=== PATIENT | female | born 2000 | race Caucasian/White ===

== ENCOUNTER 2022-03-08 11:15 | Emergency (ER) | payer OTHER, SELFPAY ==
[2022-03-08 11:42] VITALS: BP 120/81; PULSE 100; RESP 16; TEMP 36.9; O2SAT 99; BMI 34.3
[2022-03-08 12:33] LABS: Add Manual Diff / Slide Review NO; Basophils Absolute Auto 0 /uL (0-100); Basophils Percent Auto 0.3 % (0-2); Eosinophils Absolute Auto 100 /uL (0-450); Eosinophils Percent Auto 0.8 % (2-4); Hematocrit 38.5 % (36-46); Hemoglobin 12.6 g/dL (12.0-16.0); Lymphocytes Absolute Auto 1400 /uL (1100-4500); Lymphocytes Percent Auto 16.6 % (25-40); Mean Corpuscular HGB Conc 32.9 % (30-36); Mean Corpuscular Hemoglobin 26.3 PG (26-34); Mean Corpuscular Volume 80.1 fL (80-100); Monocytes Absolute Auto 500 /uL (0-900); Monocytes Percent Auto 5.4 % (3-14); Neutrophils Absolute Auto 6600 /uL (1500-7000); Neutrophils Percent Auto 76.9 % (50-75); Platelet Count 313 X10^3/uL (150-400); Red Cell Distribution Width 15.2 % (11.6-14.8); White Blood Cell Count 8.5 X10^3/uL (4.5-11.0)
[2022-03-08 12:39] LABS: Acetaminophen < 10 ug/mL (10-30); Alanine Aminotransferase 25 IU/L (<35); Albumin 4.3 g/dL (3.5-5.0); Albumin Globulin Ratio 1.1 (1.0-2.8); Alkaline Phosphatase 86 U/L (38-126); Aspartate Aminotransferase 23 IU/L (14-36); BUN Creatinine Ratio 10.5 (6-22); Bilirubin Total 0.5 mg/dL (0.2-1.3); Blood Urea Nitrogen 6 mg/dL (7-17); Calcium 8.7 mg/dL (8.4-10.2); Carbon Dioxide 23 mmol/L (22-32); Chloride 101 mmol/L (98-107); Estimated Glomerular Filt Rate > 60 mL/min (>60); Ethanol (ETOH) < 10 mg/dL; Globulin 3.8 g/dL (1.7-4.1); Glucose 80 mg/dL (70-100); HEMOLYSIS < 15 (0-50); Potassium 3.4 mmol/L (3.4-5.1); Salicylate < 1.0 mg/dL (<20); Sodium 138 mmol/L (137-145); Total Protein 8.1 g/dL (6.3-8.2)
[2022-03-08 12:45] LABS: Bacteria Urine Moderate (10-30); Culture Indicated Urine Cult Not Indicated; Mucus Urine 2+ (Negative); RBC Urine 0-1/HPF (0-5/HPF); Squamous Epithelial Cell Urine 1-5 /HPF (0-5/HPF); WBC Urine 1-5/HPF (0-5/HPF)
[2022-03-08 12:55] LABS: Free T4, Direct Thyroxine 1.02 ng/dL (0.78-2.19)
--- NOTE | 2022-03-08 13:04 | ED.PSYCH ---
HPI - Psych General Chief Complaint: Psychiatric Symptoms Stated Complaint: depression/SI Time Seen by Provider: 03/08/22 12:58 History of Present Illness HPI Narrative: Patient is a 21-year-old female history of depression is now suffering from depression. She states that her baby is now 9 months since she just found out she was 5 weeks . She had a big fight last night was having suicidal thoughts last night no longer having suicidal thoughts. She is no plan today of harming herself or harming anyone else. She has ongoing depression looking for residential placement. She lives with her mom. She has no thoughts of harming her child. She has a scheduled planned in a couple of weeks. She denies any abdominal cramping vaginal bleeding painful frequent urination or flank pain. She did have some right upper quadrant pain that lasted for about 6 hours yesterday but now is resolved. Review of Systems Review of Systems ROS Unobtainable: All systems reviewed & are unremarkable except as noted in HPI and below Exam Initial Vital Signs Initial Vital Signs: Vital Signs Temperature 98.4 F 03/08/22 11:42 Pulse Rate 100 H 03/08/22 11:42 Respiratory Rate 16 03/08/22 11:42 Blood Pressure 120/81 03/08/22 11:42 Pulse Oximetry 99 03/08/22 11:42 Oxygen Delivery Method 03/08/22 11:42 GENERAL: Alert pleasant 21-year-old female and in no acute distress. HEENT: Head atraumatic,EOMI, pupils reactive, face symmetric, moist mucous membranes CARDIOVASCULAR: Regular rate and rhythm without murmurs, rubs or gallops. RESPIRATORY: Breath sounds equal bilaterally, no wheezes rales or rhonchi. ABDOMEN: Soft, nontender. Normoactive bowel sounds all 4 quadrants. Negative Allen sign : No CVA tenderness EXTREMITIES: Normal range of motion, no clubbing or edema. Neurovascularly intact NEUROLOGICAL: Alert and oriented x4. SKIN: Warm, dry, no laceration, no petechiae, no rashes or lesions. Course Orders Ordered: ED Orders 03/08/22 11:51 Consult to SAFETY RISK LEAD - Library Technician Stat 03/08/22 11:53 Urine Drug Screen, Rapid Stat Urine Microscopic Stat 03/08/22 12:00 Acetaminophen Stat Complete Blood Count AUTO DIFF Stat Comprehensive Metabolic Panel Stat Ethanol (ETOH) Stat Free T4, Direct Thyroxine Stat Salicylate Stat Thyroid Stimulating Hormone Stat 03/08/22 12:41 COVID19 -Nasal RAPID/Pre-Proc Stat Vital Signs Vital signs: Vital Signs - 8 hr 03/08/22 11:42 Temperature 98.4 F Pulse Rate 100 H Respiratory Rate 16 Blood Pressure 120/81 Pulse Oximetry 99 Oxygen Delivery Method Room Air MDM - Psych Lab Data Result diagrams: 03/08/22 12:00 03/08/22 12:00 Labs: Lab Results 03/08/22 03/08/22 03/08/22 Range/Units 11:53 11:53 12:00 WBC 8.5 (4.5-11.0) X10^3/uL RBC 4.80 (4.0-5.2) X10^6/uL Hgb 12.6 (12.0-16.0) g/dL Hct 38.5 (36-46) % MCV 80.1 (80-100) fL MCH 26.3 (26-34) PG MCHC 32.9 (30-36) % RDW 15.2 H (11.6-14.8) % Plt Count 313 (150-400) X10^3/uL Neut % (Auto) 76.9 H (50-75) % Lymph % (Auto) 16.6 L (25-40) % [place] % (Auto) 5.4 (3-14) % Eos % (Auto) 0.8 L (2-4) % Baso % (Auto) 0.3 (0-2) % Neut # (Auto) 6600 (9058-2574) /uL Lymph # (Auto) 1400 (7268-2081) /uL [place] # (Auto) 500 (0-900) /uL Eos # (Auto) 100 (0-450) /uL Baso # (Auto) 0 (0-100) /uL Sodium (137-145) mmol/L Potassium (3.4-5.1) mmol/L Chloride (98-107) mmol/L Carbon Dioxide (22-32) mmol/L BUN (7-17) mg/dL Creatinine (0.52-1.04) mg/dL Estimated GFR (>60) mL/min BUN/Creatinine Ratio (6-22) Glucose (70-100) mg/dL Calcium (8.4-10.2) mg/dL Total Bilirubin (0.2-1.3) mg/dL AST (14-36) IU/L ALT (<35) IU/L Alkaline Phosphatase (38-126) U/L Total Protein (6.3-8.2) g/dL Albumin (3.5-5.0) g/dL Globulin (1.7-4.1) g/dL Albumin/Globulin Ratio (1.0-2.8) TSH (0.47-4.68) uIU/mL Free T4 (0.78-2.19) ng/dL Urine RBC 0-1/hpf (0-5/HPF) Urine WBC 1-5/hpf (0-5/HPF) Ur Squamous Epith Cells 1-5 /hpf (0-5/HPF) Urine Bacteria Moderate (10-30) H (None) Urine Mucus 2+ H (Negative) Ur Culture Indicated? Cult not indicated Salicylates (<20) mg/dL U Opiates 300ng/mL cut Negative (Negative) Ur Oxycodone Screen Negative (Negative) Urine Methadone Screen Negative (Negative) Acetaminophen (10-30) ug/mL Ur Barbiturates Screen Negative (Negative) U Tricyclic Antidepress Negative (Negative) Ur Phencyclidine Scrn Negative (Negative) Ur Amphetamines Screen Negative (Negative) U Methamphetamines Scrn Negative (Negative) Ur MDMA Scrn (Ecstasy) Negative (Negative) U Benzodiazepines Scrn Negative (Negative) Urine Cocaine Screen Negative (Negative) U Marijuana (THC) Screen Positive H (Negative) Ethyl Alcohol ( - 10) mg/dL SARS-CoV-2 (PCR) (Negative) 03/08/22 03/08/22 03/08/22 Range/Units 12:00 12:00 12:41 WBC (4.5-11.0) X10^3/uL RBC (4.0-5.2) X10^6/uL Hgb (12.0-16.0) g/dL Hct (36-46) % MCV (80-100) fL MCH (26-34) PG MCHC (30-36) % RDW (11.6-14.8) % Plt Count (150-400) X10^3/uL Neut % (Auto) (50-75) % Lymph % (Auto) (25-40) % [place] % (Auto) (3-14) % Eos % (Auto) (2-4) % Baso % (Auto) (0-2) % Neut # (Auto) (0037-4309) /uL Lymph # (Auto) (2842-3785) /uL [place] # (Auto) (0-900) /uL Eos # (Auto) (0-450) /uL Baso # (Auto) (0-100) /uL Sodium 138 (137-145) mmol/L Potassium 3.4 (3.4-5.1) mmol/L Chloride 101 (98-107) mmol/L Carbon Dioxide 23 (22-32) mmol/L BUN 6 L (7-17) mg/dL Creatinine 0.57 (0.52-1.04) mg/dL Estimated GFR > 60 (>60) mL/min BUN/Creatinine Ratio 10.5 (6-22) Glucose 80 (70-100) mg/dL Calcium 8.7 (8.4-10.2) mg/dL Total Bilirubin 0.5 (0.2-1.3) mg/dL AST 23 (14-36) IU/L ALT 25 (<35) IU/L Alkaline Phosphatase 86 (38-126) U/L Total Protein 8.1 (6.3-8.2) g/dL Albumin 4.3 (3.5-5.0) g/dL Globulin 3.8 (1.7-4.1) g/dL Albumin/Globulin Ratio 1.1 (1.0-2.8) TSH 0.756 (0.47-4.68) uIU/mL Free T4 1.02 (0.78-2.19) ng/dL Urine RBC (0-5/HPF) Urine WBC (0-5/HPF) Ur Squamous Epith Cells (0-5/HPF) Urine Bacteria (None) Urine Mucus (Negative) Ur Culture Indicated? Salicylates < 1.0 (<20) mg/dL U Opiates 300ng/mL cut (Negative) Ur Oxycodone Screen (Negative) Urine Methadone Screen (Negative) Acetaminophen < 10 (10-30) ug/mL Ur Barbiturates Screen (Negative) U Tricyclic Antidepress (Negative) Ur Phencyclidine Scrn (Negative) Ur Amphetamines Screen (Negative) U Methamphetamines Scrn (Negative) Ur MDMA Scrn (Ecstasy) (Negative) U Benzodiazepines Scrn (Negative) Urine Cocaine Screen (Negative) U Marijuana (THC) Screen (Negative) Ethyl Alcohol < 10 ( - 10) mg/dL SARS-CoV-2 (PCR) Negative (Negative) Point of Care Testing Test Results Positive Urine Dip Bedside Urine Glucose Negative Bedside Urine Bilirubin - Negative Bedside Urine Ketone +/- 5 Urine Specific [place] 1.030 Bedside Urine Occult Blood - Negative Bedside Urine pH 6.0 Bedside Urine Protein +/- 15 Bedside Urine Urobilinogen - Negative Bedside Urine Nitrite - Negative Bedside Urine Leukocytes - Negative Esterase MDM Narrative Medical decision making narrative: Patient has underlying depression now depression suicidal thoughts but no longer suicidal. Evaluated by social work. Patient contracts for safety. Has a safe place to go. He is given resources for residential treatment. At this time does not involuntary criteria. Long discussion with patient and mother that if things should change at home and suicidal thoughts intensify that she should return to the emergency department. At this time both mother and patient agree. There are no guns at home. Discharge Plan Departure Patient Disposition: Home Clinical Impression: Depression, Depression with suicidal ideation Instructions: DI for Depression, DI for Suicidal Ideation-Adult Activity Restrictions/Additional Instructions: *You have been diagnosed with depression with suicidal ideation *What to do: At this time he may return to the emergency department any time if you should have increased thoughts of suicide or thoughts or worsening depression If you are feeling suicidal or having suicidal thoughts: Call: Suicide Hotline: 284 Visit: www.[facility].org Text: 632282 *Continue to take medications as directed *Follow up with your primary care provider in 2-3 days or call [phone] *Return to ER if you should have intense abdominal pain vaginal bleeding worsening suicidal thoughts or any new, worsening or concerning symptoms
[2022-03-08 13:09] LABS: Thyroid Stimulating Hormone 0.756 uIU/mL (0.47-4.68)
--- NOTE | 2022-03-08 13:23 | CM.SWNOTE ---
[facility] [place] [facility] [place] Start: 03/08/22 13:02 Freq: Status: Active Protocol: Document 03/08/22 13:02 TM (Rec: 03/08/22 13:23 TM [id number]) BUSINESS ASSOCIATE/Continuity Manager Assessment Time Spent with Patient Start date 03/08/22 Visit Start Time 12:20 End date 03/08/22 Visit End Time 12:45 Mental Health Screening Include Onset, Duration, Intensity Presenting Problem Pt presents to the ED with post depression and suicidal ideation. Precipitating Event(s) Pt reports that she feels overwhelmed and sleep deprived due to her 9 month old son. Pt reports post depression and generalized anxiety disorder. Patient Strengths Pt has supportive family and good insight. Current Behavioral Health Provider(s) Pt sees a therapist on [facility], Provider, Ph. # Space. Pt's PCP and OB have prescribed medications in the past for generalized anxiety disorder. Psych. Hx Mental Health and Chemical Generalized anxiety disorder. Dependency Denies substance use. Family Hx of Behavioral Abuse pt reports excessive emotional trauma but did not go into detail. Pt denies sexual or physical trauma. Pt reports that paternal side of family may suffer from bipolar disorder and maternal side suffers from anxiety and depression. Psychiatric Hospitalizations (date(s)/ Pt denies. location) School/Work Pt is not currently working. Legal Concerns Legal Matters - Outstanding Issues Denies Mental Status Orientation (Person/Place/Time) Pt is alert and oriented x4. Stated Mood Life is too hard. I want to fall asleep and not wake up. Pt reports that these feels are off and on. Affect (Congruent with Mood?) Broad. Thought Content - Specify/Describe Denies AH and VH. Obsessions, Delusions, Hallucinations Thought Processes (Bftuxul-Iiyevdzu-Nvtb Logical, goal directed. Ttogqaom-Qzxokgag-Bgrkgodsgd- Hamdejgrkbslgx-Ieejkhc-Dnabsdelrmri- Thought Blocking) Speech (Tmgkei-Egkd-Mscdpnw-Rapid-Soft- Normal. Loud-Pressured) Motor (Eeueqc-Jepyhlzaw-Fsix-Other) Normal. Insight (Wyca-Kymr-Wlnz/Limited) Good. Judgement (Jfdj-Ssyb-Ycqc/Limited) Good. Impulse Control (Adequate-Impaired) Adequate. Memory (Uwvsxlsob-Hzpgnp-Ruyuzb, immediate. Impaired-Intact) Concentration (Intact-Impaired) Intact. Attention (Intact-Impaired) Intact. Behavior (Appropriate-Inappropriate) Appropriate. Risk Assessment Suicidal Ideation (Plan) No Homicidal Ideation (Plan) No Intervention Intervention SW met with pt and her mother at bedside to complete MH Assessment. Pt reports feeling suicidal ideation off and on. Pt reports that she has never had a plan and is too afraid to come up with one. Pt reports that she thinks that outpatient treatment is uneffective and she is too distracted by things going on at home to focus on herself. Pt has looked into [facility] [place]. SW researches and finds that it is a [facility] that offers housing. SW attempts to call but they are closed for admissions today. SW meets pt and her mother back in room and describes difference between crisis stabilization and termite inspector PHP or residential mental health. SW explains that she can refer pt to short term crisis stabilization from the ED, which generally lasts 3-7 days . Pt reports that she feels like she can contract for safety at this time and return home with the plan to pursue residential treatment on her own. [facility] discusses with ED Provider and agrees that pt is safe to discharge home with resources. [facility] provides pt with resources on additional PHP and residential programs. Plan RA Plan Pt will discharge home with resources. NEEMA Candelario
[2022-03-08 13:30] LABS: UR Morphine/Opiate cutoff 300 Negative (Negative); Ur Creatinine Normal (Normal); Ur Specific Gravity Normal (Normal); Urine Amphetamines Negative (Negative); Urine Barbiturates Negative (Negative); Urine Benzodiazepines Negative (Negative); Urine Cocaine Negative (Negative); Urine MDMA Negative (Negative); Urine Methadone Negative (Negative); Urine Methamphetamines Negative (Negative); Urine Oxycodone Negative (Negative); Urine Phencyclidine Negative (Negative); Urine Tetrahydrocannabinol Positive (Negative); Urine Tricyclic Antidepressant Negative (Negative); Urine pH Normal (Normal)
[2022-03-08 13:43] LABS: COVID19 -Nasal RAPID Negative (Negative)
== END 2022-03-08 13:50 | disposition home or self-care (01) ==
PROVIDERS: Emergency Provider Emergency Medicine
DX: O99.345 Other mental disorders complicating the puerperium (principal); R45.851 Suicidal ideations; Z20.822 Contact with and (suspected) exposure to COVID-19
CPT/HCPCS: 80053; 80305; 80320; 80329; 81003; 81015; 81025; 84439; 84443; 85025; 87635; 99283; C9803; G0480

== ENCOUNTER 2022-07-17 06:40 | Emergency (ER) | payer OTHER, SELFPAY ==
[2022-07-17] VITALS (10 sets, daily range): BP systolic 107–140; BP diastolic 64–76; PULSE 77–110; RESP 12–21; TEMP 36.3; O2SAT 96–100; BMI 34.9
--- NOTE | 2022-07-17 07:27 | PC.NURSE ---
Pt appears well, states she is slightly anxious. Reports a sharp chest pain that is worse with movement. She states that she has had a dull chest pain for the past week and has had a medical w/u with an o/p EKG and ECHO scheduled. Pt is a&ox4 at this time. Speaking in full clear sentences
[2022-07-17 07:38] LABS: Add Manual Diff / Slide Review NO; Alanine Aminotransferase 21 IU/L (<35); Albumin 4.4 g/dL (3.5-5.0); Albumin Globulin Ratio 1.3 (1.0-2.8); Alkaline Phosphatase 89 U/L (38-126); Aspartate Aminotransferase 25 IU/L (14-36); BUN Creatinine Ratio 12.9 (6-22); Basophils Absolute Auto 0 /uL (0-100); Basophils Percent Auto 0.9 % (0-2); Bilirubin Total 0.4 mg/dL (0.2-1.3); Blood Urea Nitrogen 8 mg/dL (7-17); Calcium 8.3 mg/dL (8.4-10.2); Carbon Dioxide 24 mmol/L (22-32); Chloride 105 mmol/L (98-107); Creatine Kinase 114 U/L (30-135); Eosinophils Absolute Auto 200 /uL (0-450); Eosinophils Percent Auto 4.1 % (2-4); Estimated Glomerular Filt Rate > 60 mL/min (>60); Globulin 3.4 g/dL (1.7-4.1); Glucose 112 mg/dL (70-100); HEMOLYSIS < 15 (0-50); Hematocrit 39.2 % (36-46); Hemoglobin 13.2 g/dL (12.0-16.0); Lipase 196 U/L (23-300); Lymphocytes Absolute Auto 1300 /uL (1100-4500); Lymphocytes Percent Auto 25.8 % (25-40); Magnesium 1.9 mg/dL (1.6-2.3); Mean Corpuscular HGB Conc 33.6 % (30-36); Mean Corpuscular Hemoglobin 26.5 PG (26-34); Mean Corpuscular Volume 78.8 fL (80-100); Monocytes Absolute Auto 400 /uL (0-900); Monocytes Percent Auto 8.6 % (3-14); Neutrophils Absolute Auto 3100 /uL (1500-7000); Neutrophils Percent Auto 60.6 % (50-75); Platelet Count 231 X10^3/uL (150-400); Potassium 3.8 mmol/L (3.4-5.1); Red Blood Cell Count 4.97 X10^6/uL (4.0-5.2); Red Cell Distribution Width 15.9 % (11.6-14.8); Sodium 140 mmol/L (137-145); Total Protein 7.8 g/dL (6.3-8.2); White Blood Cell Count 5.1 X10^3/uL (4.5-11.0)
[2022-07-17 07:48] LABS: Troponin I < 0.012 ng/mL (0.01-0.034)
[2022-07-17 07:52] LABS: CKMB % Relative Index 0.2 % (1.5-5.0); Creatine Kinase MB 0.24 ng/mL (<2.37)
[2022-07-17 08:04] LABS: C-Reactive Protein Quant 0.6 mg/dL (<1.0)
--- NOTE | 2022-07-17 08:06 | ED_ITS ---
HPI - Chest Pain General Chief Complaint: Chest Pain Stated Complaint: chest pain, tightness Time Seen by Provider: 07/17/22 07:24 Source: patient Mode of arrival: Ambulatory Limitations: no limitations History of Present Illness HPI narrative: This is a 22-year-old who is 13 months from a . Patient notes that she is had elevated CRP since October she is not sure exactly why they have been checking it. Patient states she is had chest pain sort of on the left side of her chest for about a month it has been intermittent it is become more persistent over the last 1-2 weeks and today woke up and was much stronger and more persistent. She describes it on the left chest it radiated to her color about 4 cm. No other radiation to neck, arm back or abdomen. She states movement makes it worse. Resting or being still seems to be helpful but there is nothing else makes it better. It typically last about 10 seconds to a minute and then resolves. She denies any fevers chills cold cough or congestion, no nausea or vomiting no other GI or urinary symptoms. No shortness of breath. No hemoptysis. She notes she is occasionally had hives on her arm but not persistently and none today. She denies any medical issues. She takes some natural supplements. She states only prior surgeries . She is 13 months she stopped in March. No tobacco, occasional alcohol, no illicit. She notes her grandmother had a pacemaker. Mom and aunt have some form of tachycardia and take medications they are both living she is unsure exactly what they are tachycardia is. Her primary care is Dr. Maurice arizmendi. She is tried Tylenol PRN which has not been helpful she has not taken anything for pain today. Related Data Allergies Allergy/AdvReac Type Severity Reaction Status Date / Time No Known Drug Allergies Allergy Verified 07/17/22 06:57 Review of Systems Review of Systems ROS Unobtainable: All systems reviewed & are unremarkable except as noted in HPI and below Patient History Social History Smoking Status: Never smoker Smoking Status: Never smoker Substance Use Type: does not use Exam Narrative Exam Narrative: GENERAL: Alert and oriented x three, female in mild distress. HEENT: Head normocephalic, atraumatic, EOMI, pupils reactive, face symmetric, moist mucous membranes NECK: Supple, full range of motion CARDIOVASCULAR: Regular rate and rhythm without murmurs, rubs or gallops. Patient has a localized area of tenderness at the left ribs on the anterior the upper edge of her breast to 12 o'clock position. Patient does not have any mass, lumps, crepitus, no warmth, erythema or other skin changes. RESPIRATORY: Breath sounds equal bilaterally, no wheezes rales or rhonchi. No tachypnea. No accessory muscle use. Speaks in full sentences. ABDOMEN: Soft, nontender. Normoactive bowel sounds all 4 quadrants. No guarding or rebound, rigidity, no mass : No CVA tenderness EXTREMITIES: Normal range of motion, no clubbing or edema. Neurovascularly intact. No swelling bilateral upper extremities. NEUROLOGICAL: Cranial nerves II through XII grossly intact. Moving all extremities SKIN: Warm, dry, no petechiae, no rashes or lesions noted. Initial Vital Signs Initial Vital Signs: Vital Signs Pulse Rate 104 H 07/17/22 06:46 Pulse Oximetry 97 07/17/22 06:46 Scores HEART Score Heart Score history: Slightly Suspicious Heart Score EKG: Normal Heart Score Age: < 45 years old Heart Score risk factors: 1-2 risk factors Heart Score troponin: < or = to normal limit Heart Score Total: 1 Course Orders Ordered: Discontinued Medications Ketorolac Tromethamine (Ketorolac 30 Mg/Ml Vial) 15 mg IV NOW ONE Stop: 07/17/22 08:35 Last Admin: 07/17/22 08:57 Dose: 15 mg Documented By: AMU Vital Signs Vital signs: Vital Signs - 8 hr 07/17/22 06:50 07/17/22 06:46 07/17/22 06:47 Temperature 97.3 F L Pulse Rate 110 H 104 H 103 H Respiratory Rate 16 Blood Pressure 140/76 Pulse Oximetry 96 97 98 Oxygen Delivery Method Room Air 07/17/22 06:47 07/17/22 07:00 07/17/22 07:00 Temperature Pulse Rate 86 Respiratory Rate 12 Blood Pressure 140/76 125/70 Pulse Oximetry 99 Oxygen Delivery Method Room Air MDM - Chest Pain Lab Data 07/17/22 07:00 07/17/22 07:00 Labs: Lab Results 05/12/23 05/12/23 05/12/23 Range/Units 07:00 07:00 07:27 WBC 5.1 (4.5-11.0) X10^3/uL RBC 4.97 (4.0-5.2) X10^6/uL Hgb 13.2 (12.0-16.0) g/dL Hct 39.2 (36-46) % MCV 78.8 L (80-100) fL MCH 26.5 (26-34) PG MCHC 33.6 (30-36) % RDW 15.9 H (11.6-14.8) % Plt Count 231 (150-400) X10^3/uL Neut % (Auto) 60.6 (50-75) % Lymph % (Auto) 25.8 (25-40) % [place] % (Auto) 8.6 (3-14) % Eos % (Auto) 4.1 H (2-4) % Baso % (Auto) 0.9 (0-2) % Neut # (Auto) 3100 (9751-1406) /uL Lymph # (Auto) 1300 (5878-4117) /uL [place] # (Auto) 400 (0-900) /uL Eos # (Auto) 200 (0-450) /uL Baso # (Auto) 0 (0-100) /uL ESR 11 (0-20) MM/HR D-Dimer (<500) ng/ml Sodium 140 (137-145) mmol/L Potassium 3.8 (3.4-5.1) mmol/L Chloride 105 (98-107) mmol/L Carbon Dioxide 24 (22-32) mmol/L BUN 8 (7-17) mg/dL Creatinine 0.62 (0.52-1.04) mg/dL Estimated GFR > 60 (>60) mL/min BUN/Creatinine Ratio 12.9 (6-22) Glucose 112 H (70-100) mg/dL Calcium 8.3 L (8.4-10.2) mg/dL Magnesium 1.9 (1.6-2.3) mg/dL Total Bilirubin 0.4 (0.2-1.3) mg/dL AST 25 (14-36) IU/L ALT 21 (<35) IU/L Alkaline Phosphatase 89 (38-126) U/L Total Creatine Kinase 114 (30-135) U/L CK-MB (CK-2) 0.24 (<2.37) ng/mL CK-MB (CK-2) Rel Index 0.2 L (1.5-5.0) % Troponin I < 0.012 (0.01-0.034) ng/mL C-Reactive Protein (<1.0) mg/dL NT-Pro-B Natriuret Pep (<125) pg/mL Total Protein 7.8 (6.3-8.2) g/dL Albumin 4.4 (3.5-5.0) g/dL Globulin 3.4 (1.7-4.1) g/dL Albumin/Globulin Ratio 1.3 (1.0-2.8) Lipase 196 (23-300) U/L 07/17/22 07/17/22 07/17/22 Range/Units 07:27 07:35 09:00 WBC (4.5-11.0) X10^3/uL RBC (4.0-5.2) X10^6/uL Hgb (12.0-16.0) g/dL Hct (36-46) % MCV (80-100) fL MCH (26-34) PG MCHC (30-36) % RDW (11.6-14.8) % Plt Count (150-400) X10^3/uL Neut % (Auto) (50-75) % Lymph % (Auto) (25-40) % [place] % (Auto) (3-14) % Eos % (Auto) (2-4) % Baso % (Auto) (0-2) % Neut # (Auto) (6727-2866) /uL Lymph # (Auto) (9882-6868) /uL [place] # (Auto) (0-900) /uL Eos # (Auto) (0-450) /uL Baso # (Auto) (0-100) /uL ESR (0-20) MM/HR D-Dimer < 215 (<500) ng/ml Sodium (137-145) mmol/L Potassium (3.4-5.1) mmol/L Chloride (98-107) mmol/L Carbon Dioxide (22-32) mmol/L BUN (7-17) mg/dL Creatinine (0.52-1.04) mg/dL Estimated GFR (>60) mL/min BUN/Creatinine Ratio (6-22) Glucose (70-100) mg/dL Calcium (8.4-10.2) mg/dL Magnesium (1.6-2.3) mg/dL Total Bilirubin (0.2-1.3) mg/dL AST (14-36) IU/L ALT (<35) IU/L Alkaline Phosphatase (38-126) U/L Total Creatine Kinase (30-135) U/L CK-MB (CK-2) (<2.37) ng/mL CK-MB (CK-2) Rel Index (1.5-5.0) % Troponin I < 0.012 (0.01-0.034) ng/mL C-Reactive Protein 0.6 (<1.0) mg/dL NT-Pro-B Natriuret Pep 23 (<125) pg/mL Total Protein (6.3-8.2) g/dL Albumin (3.5-5.0) g/dL Globulin (1.7-4.1) g/dL Albumin/Globulin Ratio (1.0-2.8) Lipase (23-300) U/L Imaging Data Chest x-ray: Radiologist's Impression: [address] [address] XRay Report Signed Patient: Marielos Aviles MR#: [id number] : 2000 Acct:[id number] Age/Sex: 22 / F Date of Service: 07/17/22 Loc: ED Accession Number: [id number] ?? Procedure: XR chest 1V Ordering Provider: Nadia Purcell D.O. PROCEDURE:? XR CHEST 1V ? INDICATIONS:? chest pain ? TECHNIQUE:? One view of the chest was acquired.? ? COMPARISON:? None. ? FINDINGS:? ? Surgical changes and devices:? None.? ? Lungs and pleura:? Lungs are clear.? No pleural effusions or pneumothorax.? ? Mediastinum:? Mediastinal contours appear normal.? Heart size is normal.? ? Bones and chest wall:? No suspicious bony lesions.? Overlying soft tissues appear unremarkable.? ? IMPRESSION:? No acute cardiopulmonary abnormality. ? ? ? Dictated by: Octavio Godwin M.D. on 07/17/2022 at 8:52 ? ? Approved by: Octavio Godwin M.D. on 07/17/2022 at 8:53?? ECG Data Attestation: I personally reviewed and interpreted this ECG as follows: Prior ECG tracings: not available for review Interpretation: Sinus rhythm rate of 94 RI 138 QRS [address]TC [address] No acute ST elevation or depression. No priors for comparison. MDM Narrative Medical decision making narrative: This is a 22-year-old female who presents with complaint of chest pain that is w orse with movement that has been going on for a month it has been intermittent lasting 10 seconds to 1 minute. Patient's pain is reproducible on exam no masses lumps or signs of infection or other changes appreciated. Patient does not have any high-risk factors from medical standpoint she has some family members who have had tachycardia and a grandmother with pacemaker but no known coronary artery disease described. Patient's CBC, CMP, dimer, LFTs and troponin as well as BNP are all negative. CRP and ESR were obtained, CRP is negative. ESR is negative making pericarditis less likely. No acute EKG changes appreciated. Chest x-ray shows no acute change. Patient had repeat troponin at 2 hours is negative. Discussed return precautions. Discharge Plan Departure Patient Disposition: Home Clinical Impression: Atypical chest pain Instructions: DI for Atypical Chest Pain Activity Restrictions/Additional Instructions: Please follow-up with your physician for recheck. Please call to set up an appointment. You can take Tylenol up to a 1000 mg every 6 hours as needed for pain. If you can tolerate ibuprofen or naproxen you can try these medications. You can try lidocaine patch to the affected area see if this is helpful. Please return for new or worsening chest pain, shortness of breath, lightheadedness or passing out, new swelling of her extremities or other new or concerning changes. Stand Alone Forms: Patient Portal/API
[2022-07-17 08:07] LABS: D Dimer < 215 ng/ml (<500)
--- NOTE | 2022-07-17 08:07 | DI.RAD.S_ITS ---
PROCEDURE: XR CHEST 1V INDICATIONS: chest pain TECHNIQUE: One view of the chest was acquired. COMPARISON: None. FINDINGS: Surgical changes and devices: None. Lungs and pleura: Lungs are clear. No pleural effusions or pneumothorax. Mediastinum: Mediastinal contours appear normal. Heart size is normal. Bones and chest wall: No suspicious bony lesions. Overlying soft tissues appear unremarkable. IMPRESSION: No acute cardiopulmonary abnormality. Dictated by: Octavio Godwin M.D. on 07/17/2022 at 8:52 Approved by: Octavio Godwin M.D. on 07/17/2022 at 8:53
[2022-07-17 08:11] LABS: NT-proBNP (BNP-Adult 18+) 23 pg/mL (<125)
[2022-07-17 08:18] LABS: Erythrocyte Sedimentation Rate 11 MM/HR (0-20)
[2022-07-17] MEDS: KETOROLAC 30 MG/ML VIAL 15 MG IV (08:57)
[2022-07-17 09:30] LABS: Troponin I < 0.012 ng/mL (0.01-0.034)
== END 2022-07-17 10:10 | disposition home or self-care (01) ==
PROVIDERS: Emergency Medicine; Emergency Provider Emergency Medicine
DX: R07.89 Other chest pain (principal)
CPT/HCPCS: 36415; 71045; 80053; 82550; 82553; 83690; 83735; 83880; 84484; 85025; 85379; 85651; 86140; 93005; 96374; 99284; J1885

== ENCOUNTER 2022-07-24 10:33 | Emergency (ER) | payer OTHER, SELFPAY ==
[2022-07-24 11:23] VITALS: BP 132/86; PULSE 101; RESP 16; TEMP 36.6; O2SAT 97; BMI 34.7
--- NOTE | 2022-07-24 11:37 | DI.US.S_ITS ---
PROCEDURE: US PELVIC COMPLETE INDICATIONS: IUD PLACEMENT CHECK PLACED WEDNESDAY + CRAMPING TECHNIQUE: Real-time scanning was performed of the pelvic organs, with image documentation. Additional endovaginal scanning was necessary due to incomplete visualization of the adnexal and endometrial structures by transabdominal scanning. COMPARISON: None. FINDINGS: Uterus: Uterus is anteverted and normal in size at 7.9 x 3.7 x 5.1 cm. The myometrium is homogeneous. The endometrium measures 9 mm combined thickness. IUD appears appropriately positioned within the endometrial cavity. Ovaries: The right ovary measures 3.4 x 3.4 x 3.6 cm, with a calculated ovarian volume of 22 cc. The left ovary measures 2.6 x 2.3 x 2.3 cm, with a calculated ovarian volume of 7.2 cc. The ovaries have a normal sonographic appearance. Greater than 12 follicles can be seen in each ovary. No adnexal masses are seen. Hemorrhagic right ovarian follicle. Other: No pathologic free abdominal or pelvic fluid. IMPRESSION: IUD appears appropriately positioned within endometrial cavity. Greater than 12 follicles per ovary, which can be seen in the clinical setting of PCOS. We strive to produce accurate, complete, and clear reports of imaging services. To assist us in improving patient care, this report was composed using standard report templates and voice recognition software. Therefore, it may contain abnormal punctuation, insertions and/or omissions. Occasional wrong-word or sound-alike substitutions may occur. Though we review the report and make efforts to correct it, we do recommend that the report be read carefully in proper context to recognize any text inaccuracies. Dictated by: Cade Maddox M.D. on 07/24/2022 at 12:28 Approved by: Cade Maddox M.D. on 07/24/2022 at 12:31
== END 2022-07-24 13:12 | disposition left against medical advice (07) ==
PROVIDERS: Emergency Provider Emergency Medicine
DX: Z30.431 Encounter for routine checking of intrauterine contraceptive device (principal); R10.9 Unspecified abdominal pain
CPT/HCPCS: 76830; 76856; 93975; 99283

== ENCOUNTER 2022-09-09 13:13 | Emergency (ER) | payer OTHER, SELFPAY ==
[2022-09-09 13:26] VITALS: BP 133/72; PULSE 103; RESP 16; TEMP 36.6; O2SAT 97; BMI 34.5
--- NOTE | 2022-09-09 13:46 | ED_ITS ---
HPI - Skin/Abscess/Foreign Bdy <JUSTUS Jones - Last Filed: 09/09/22 14:32> General Chief complaint: Skin/Abscess/Foreign Body Stated complaint: sore throat/rash/thinks she has Toxic shock symdro Time Seen by Provider: 09/09/22 13:25 Source: patient Mode of arrival: Ambulatory History of Present Illness HPI narrative: This is a 22-year-old female presents to the emergency department complaining sore throat with a bumpy rash on her body getting worse over last 3 days. She is on her menstrual cycle, states that she left a tampon in for 18 hours 3 days ago, 9 hours the next day and 10 hours the next day and is concerned about toxic shock syndrome. States that she woke up with a sore throat today and states it is little bit better now, she does not have tonsils, denies any known sick contacts. Endorses having chills but denies fever, rhinorrhea, urinary or stool changes. Denies abdominal pain but states that she is had vomiting a few times recently. Is not taking her metformin states that she is had Zofran a couple of times recently for her nausea and states that she has a history of nausea at baseline. States the vomiting is new for her. Related Data Previous Rx's Medication Instructions Recorded cetirizine 10 mg tablet (Zyrtec) 10 mg PO DAILY PRN allergy 09/09/22 symptoms/rash #30 tabs hydroxyzine HCl 10 mg tablet 10 mg PO TID PRN itching #30 tabs 09/09/22 nitrofurantoin 100 mg PO BID #10 caps 09/09/22 monohydrate/macrocrystals 100 mg capsule (Macrobid) ondansetron 4 mg disintegrating 4 mg PO Q8H PRN nausea and 09/09/22 tablet vomiting #10 tabs Allergies Allergy/AdvReac Type Severity Reaction Status Date / Time No Known Drug Allergies Allergy Verified 07/17/22 06:57 Review of Systems <JUSTUS Jones - Last Filed: 09/09/22 14:32> Review of Systems ROS Unobtainable: All systems reviewed & are unremarkable except as noted in HPI and below Patient History <JUSTUS Jones - Last Filed: 09/09/22 14:32> Social History Smoking Status: Never smoker Smoking Status: Never smoker Substance Use Type: does not use Exam <JUSTUS Jones - Last Filed: 09/09/22 14:32> Narrative Exam Narrative: HEENT: Posterior pharynx without erythema, note oz bilaterally midline, posterior or airway is widely patent Skin: bilateral upper and lower extremities a fine maculopapular rash itches mildly bumpy, pruritic and patient is rubbing her arms at this time. There are no lesions or vesicles, no pustules. Abdomen: Is not distended, no CVA tenderness, no complaint of abdominal pain and nontender to palpation Initial Vital Signs Initial Vital Signs: Vital Signs Temperature 97.8 F 09/09/22 13:26 Pulse Rate 103 H 09/09/22 13:26 Respiratory Rate 16 09/09/22 13:26 Blood Pressure 133/72 09/09/22 13:26 Pulse Oximetry 97 09/09/22 13:26 Oxygen Delivery Method Room Air 09/09/22 13:26 <Jamie Miller DO - Last Filed: 09/10/22 06:32> Initial Vital Signs Initial Vital Signs: Vital Signs Temperature 97.8 F 09/09/22 13:26 Pulse Rate 103 H 09/09/22 13:26 Respiratory Rate 16 09/09/22 13:26 Blood Pressure 133/72 09/09/22 13:26 Pulse Oximetry 97 09/09/22 13:26 Oxygen Delivery Method Room Air 09/09/22 13:26 Course <JUSTUS Jones - Last Filed: 09/09/22 14:32> Orders Ordered: Discontinued Medications Nitrofurantoin Macrocrystals (Nitrofurantoin Er 100 Mg Capsule) 100 mg PO NOW ONE Stop: 09/09/22 14:26 Vital Signs Vital signs: Vital Signs - 8 hr 09/09/22 13:26 Temperature 97.8 F Pulse Rate 103 H Respiratory Rate 16 Blood Pressure 133/72 Pulse Oximetry 97 Oxygen Delivery Method Room Air <Jamie Miller DO - Last Filed: 09/10/22 06:32> Orders Ordered: Discontinued Medications Nitrofurantoin Macrocrystals (Nitrofurantoin Er 100 Mg Capsule) 100 mg PO NOW ONE Stop: 09/09/22 14:26 Vital Signs Vital signs: Vital Signs - 8 hr 09/09/22 13:26 Temperature 97.8 F Pulse Rate 103 H Respiratory Rate 16 Blood Pressure 133/72 Pulse Oximetry 97 Oxygen Delivery Method Room Air MDM - Skin/Abscess/Foreign Bdy <Ana Maria Phylicia Carole, [facility] - Last Filed: 09/09/22 14:32> Lab Data Labs: Lab Results 09/09/22 09/09/22 09/09/22 Range/Units 13:51 13:51 13:51 Urine RBC None seen (0-5/HPF) Urine WBC 5-10/hpf H (0-5/HPF) Ur Squamous Epith Cells 1-5 /hpf (0-5/HPF) Urine Bacteria Occasional (0-1) (None) Urine Mucus 2+ H (Negative) Ur Culture Indicated? Specimen cultured SARS-CoV-2 (PCR) Negative (Negative) Group A Strep (PCR) Negative (Negative) MDM Narrative Medical decision making narrative: Chief Complaint: rash, sore throat Multiple etiologies for patient's complaint considered including, but not limited to: Pustular eczema, viral exanthem, scarlet fever, strep throat, acute viral illness with exanthem, urinary tract infection, ovarian cyst, I have independently reviewed the patient's vital signs and nursing notes as well as prior records if available. Course of Care: Patient's rapid strep was negative, throat culture is pending, rapid COVID test is also negative, urine microscopy shows blood, 5-10 wbc's and occasional bacteria, culture is pending, patient's symptoms are most consistent with a viral exanthem, no new exposure to anything recently, no known sick contacts, no new medications or foods. She was prescribed cetirizine and Zofran for nausea, Macrobid if she develops urinary tract symptoms while her culture is pending, hydroxyzine for pruritus. Encouraged her to follow-up primary care soon return for new or worsening condition. Social considerations that may affect disposition: none Questions are addressed and there is agreement with the plan and for follow-up if not any better in 2 days.. I consulted with the ED attending physician Dr. Miller as needed for higher level of care considerations and they were available for discussion and recommendations regarding plan of care and diagnostic testing. Patient is appropriate for outpatient management. <Jamie [place], DO - Last Filed: 09/10/22 06:32> Lab Data Labs: Lab Results 09/09/22 09/09/22 09/09/22 Range/Units 13:51 13:51 13:51 Urine RBC None seen (0-5/HPF) Urine WBC 5-10/hpf H (0-5/HPF) Ur Squamous Epith Cells 1-5 /hpf (0-5/HPF) Urine Bacteria Occasional (0-1) (None) Urine Mucus 2+ H (Negative) Ur Culture Indicated? Specimen cultured SARS-CoV-2 (PCR) Negative (Negative) Group A Strep (PCR) Negative (Negative) Discharge Plan Departure Patient Disposition: Home Clinical Impression: Viral exanthem Instructions: Urinary Tract Infection, DI for Viral Rash-Child Activity Restrictions/Additional Instructions: *You have been diagnosed with a rash that is a little itchy, the rapid strep and rapid COVID tests were negative, your vomiting I am wondering is related to possible urinary tract infection since he has some bacteria and WBCs in urine. We have culture the urine, I have given you an antibiotic to start taking if you have any urinary symptoms that develop otherwise hang onto this has not needed at all. We will follow-up on the culture and call you if you need to start it. Please use Zofran as needed for nausea, hydroxyzine as needed for itching and rash and please take Zyrtec daily to help with this symptom. Ibuprofen and Tylenol will be helpful for pain and chills if you have them. *What to do: *Please continue to take your regular medications as directed. [ x] New medication prescriptions sent to your pharmacy: [ [facility]] [ ] New medication written as a paper prescription [ ] No new medications given *Please call and schedule follow up with your primary care provider in 2-3 days, at least for an update. Let them know you were seen in the Emergency Department for the above problem. We will electronically transmit a record of today's note if your PCP or specialist is in our system. *If you do not have a primary care provider please contact [phone] to establish care with one of the [facility] primary care providers. *Return to the Emergency Department for worsening symptoms, inability to keep liquids down, fever greater than 101F, chills, or other concerning symptom. Prescriptions: New hydroxyzine HCl 10 mg tablet 10 mg PO TID PRN (Reason: itching) Qty: 30 0RF cetirizine [Zyrtec] 10 mg tablet 10 mg PO DAILY PRN (Reason: allergy symptoms/rash) Qty: 30 0RF ondansetron 4 mg tablet,disintegrating 4 mg PO Q8H PRN (Reason: nausea and vomiting) Qty: 10 0RF nitrofurantoin monohyd/m-cryst [Macrobid] 100 mg capsule 100 mg PO BID Qty: 10 0RF Rx Instructions: must administer with a meal/food Referrals: Miscellaneous,Doctor, MD [Primary Care Provider] - Stand Alone Forms: Patient Portal/API <Jamie Miller DO - Last Filed: 09/10/22 06:32> Cosign ED Attending Catina Attestation: I was immediately available in the department for consultation. Documentation has been reviewed. I agree with assessment and plan.
[2022-09-09 14:15] LABS: Bacteria Urine Occasional (0-1); RBC Urine None Seen (0-5/HPF); Squamous Epithelial Cell Urine 1-5 /HPF (0-5/HPF); WBC Urine 5-10/HPF (0-5/HPF)
[2022-09-09 14:16] LABS: Culture Indicated Urine Specimen Cultured; Mucus Urine 2+ (Negative)
[2022-09-09 14:17] LABS: Strep Grp A by PCR Rapid Negative (Negative)
[2022-09-09 14:22] LABS: COVID19 -Nasal RAPID Negative (Negative)
[2022-09-09 14:40] VITALS: BP 111/74; PULSE 80; RESP 13; O2SAT 98
== END 2022-09-09 14:41 | disposition home or self-care (01) ==
PROVIDERS: Emergency Provider Nurse Practitioner Critical Care Medicine
DX: B09 Unspecified viral infection characterized by skin and mucous membrane lesions (principal); Z20.822 Contact with and (suspected) exposure to COVID-19
CPT/HCPCS: 81015; 87070; 87086; 87635; 87651; 99281; 99282; C9803

== ENCOUNTER 2022-10-07 18:26 | Emergency (ER) | payer OTHER, SELFPAY ==
[2022-10-07 18:32] VITALS: BP 136/82; PULSE 125; RESP 16; TEMP 37.2; O2SAT 96; BMI 33.8
--- NOTE | 2022-10-07 18:38 | DI.RAD.S_ITS ---
PROCEDURE: XR FINGER RT MIN 2V INDICATIONS: injury/fall TECHNIQUE: AP hand, 2 views of the right 3rd finger(s) acquired. COMPARISON: None. FINDINGS: Bones: No fractures or dislocations. No suspicious bony lesions. Soft tissues: No suspicious soft tissue calcifications. IMPRESSION: Intact right 3rd digit. Dictated by: Nova Gr M.D. on 10/07/2022 at 19:26 Approved by: Nova Gr M.D. on 10/07/2022 at 19:27
== END 2022-10-07 21:17 | disposition left against medical advice (07) ==
PROVIDERS: Emergency Provider Emergency Medicine
DX: S69.91XA Unspecified injury of right wrist, hand and finger(s), initial encounter (principal); W18.30XA Fall on same level, unspecified, initial encounter
CPT/HCPCS: 73140; 99281